=== PATIENT | female | born 1935 | race Caucasian/White ===

== ENCOUNTER 2021-11-06 14:57 | Emergency (ER) | payer MEDICARE ==
[2021-11-06 16:07] VITALS: BP 160/70; PULSE 76
== END 2021-11-06 16:16 | disposition home or self-care (01) ==
LOC: JP.ED 14:57
DX: S01.01XA Laceration without foreign body of scalp, initial encounter (principal); E78.00 Pure hypercholesterolemia, unspecified; I10 Essential (primary) hypertension; Z79.899 Other long term (current) drug therapy; Z90.49 Acquired absence of other specified parts of digestive tract; Z90.710 Acquired absence of both cervix and uterus; W22.8XXA Striking against or struck by other objects, initial encounter
CPT/HCPCS: 12004; 99281; 99283